=== PATIENT | female | born 1985 | race Two or more races ===

== ENCOUNTER 2022-12-03 09:35 | Day surgery (SDC) | payer MEDICAID, OTHER ==
[~2022-12-03] VITALS: Ht 162.6 cm; Wt 56.7 kg
[2022-12-03] MEDS ORDERED: SEVOFLURANE 250 ML BTL INH ONE (12:00)
[2022-12-03] MEDS ORDERED: ONDANSETRON 4 MG/2 ML VIAL ONE ×2 (12:00→13:11)
[2022-12-03] MEDS ORDERED: fentaNYL citrate 0.05 MG/ML - 50mL vial IV ONE (12:00)
[2022-12-03] MEDS ORDERED: PROPOFOL 200 MG/20 ML VIAL IV ONE ×2 (12:00→13:11)
[2022-12-03] MEDS ORDERED: ATROPINE 0.4 MG/ML VIAL ONE ×2 (12:00→13:11)
[2022-12-03] MEDS ORDERED: SUCCINYLCHOLINE CHLORIDE 200 MG/10 ML VIAL IVP ONE ×2 (12:00→13:11)
[2022-12-03] MEDS ORDERED: KETOROLAC 30 MG/ML VIAL ONE ×2 (12:00→13:11)
[2022-12-03] MEDS ORDERED: BUPIVACAINE-MPF 0.25% 30 ML VIAL INJ ONE (12:31)
[2022-12-03] MEDS ORDERED: fentaNYL citrate 0.05 MG/ML VIAL ONE (12:49)
[2022-12-03] MEDS ORDERED: diphenhydrAMINE 50 MG/ML VIAL IVP PRN (13:30)
[2022-12-03] MEDS ORDERED: HYDROmorphone 1 MG/ML AMP IVP PRN (13:30)
[2022-12-03] MEDS ORDERED: LACTATED RINGERS 1,000 ML IV SCH (13:30)
[2022-12-03] MEDS ORDERED: hydrALAZINE 20 MG/ML VIAL IVP PRN (13:32)
[2022-12-03] MEDS ORDERED: METOCLOPRAMIDE 10 MG/2 ML INJ VIAL IVP PRN (13:32)
[2022-12-03] MEDS ORDERED: LABETALOL 20 MG/4 ML VIAL IVP PRN (13:32)
== END 2022-12-03 14:58 | disposition home or self-care (01) ==
LOC: MDS 09:35 → MMU 09:36 → MDS 14:58
PROVIDERS: ATTEND Obstetrics & Gynecology
DX: Z30.2 Encounter for sterilization (principal); Z91.011 Allergy to milk products
CPT/HCPCS: 58670; J0330; J0461; J1885; J2405; J2704; J3010; J3490